=== PATIENT | male | born 1990 | race Caucasian/White ===

== ENCOUNTER 2022-10-26 11:58 | Emergency (ER) | payer MEDICAID ==
[~2022-10-26] VITALS: Ht 170.2 cm; Wt 83.9 kg
[2022-10-26 12:06] VITALS: BP 153/84
[2022-10-26] MEDS ORDERED: IBUPROFEN 600 MG TAB PO ONE (12:10)
[2022-10-26] MEDS ORDERED: IBUPROFEN 600 MG TAB ONE (13:38)
[2022-10-26] MEDS ORDERED: IBUP-2213 PO (13:48)
[2022-10-26] MEDS ORDERED: ACET-8905 PO (13:48)
--- NOTE | 2022-10-26 14:00 | NUR ---
Patient discharged with v/s stable. Written and verbal after care instructions about ankle fracture given and explained. Patient alert, oriented and verbalized understanding of instructions. Ambulatory with steady gait with crutches. All questions addressed prior to discharge. ID band removed. Patient advised to follow up with PMD. Rx of norco and motrin given. Patient educated on indication of medication including possible reaction and side effects. Opportunity to ask questions provided and answered.
== END 2022-10-26 14:00 | disposition home or self-care (01) ==
LOC: MED 11:58
DX: S82.891A Other fracture of right lower leg, initial encounter for closed fracture (principal); R03.0 Elevated blood-pressure reading, without diagnosis of hypertension; X58.XXXA Exposure to other specified factors, initial encounter; Y93.89 Activity, other specified; Y92.89 Other specified places as the place of occurrence of the external cause; Y99.8 Other external cause status
CPT/HCPCS: 29515; 73610; 73630; 99284